=== PATIENT | male | born 1955 | race Caucasian/White ===

== ENCOUNTER 2019-05-09 14:50 | Emergency (ER) | payer MEDICAID ==
[~2019-05-09] VITALS: Ht 180.3 cm; Wt 109.3 kg
[2019-05-09 14:55] VITALS: BP 141/78
--- NOTE | 2019-05-09 15:01 | NUR ---
64/M BIB SELF C/O SORE THROAT, COUGH, CONGESTION SINCE YESTERDAY.PATIENT STATES PAIN OF 5/10 AT THIS TIME. PATIENT POSITIONED FOR COMFORT; HOB ELEVATED; BEDRAILS UP X1; BED DOWN. ER MD MADE AWARE OF PT STATUS.
[2019-05-09] MEDS: IBUPROFEN 800 MG TAB PO ONE (15:28)
--- NOTE | 2019-05-09 16:07 | NUR ---
Patient discharged with v/s stable. Written and verbal after care instructions given and explained. Patient alert, oriented and verbalized understanding of instructions. Ambulatory with steady gait. All questions addressed prior to discharge. ID band removed. Patient advised to follow up with PMD. Rx of MOTRIN 800 MG, PROMETHAZINE 6.25/15 MG/ML given. Patient educated on indication of medication including possible reaction and side effects. Opportunity to ask questions provided and answered.
[2019-05-09 16:08] VITALS: BP 134/97
== END 2019-05-09 16:07 | disposition home or self-care (01) ==
LOC: MED 14:50
DX: J06.9 Acute upper respiratory infection, unspecified (principal)
CPT/HCPCS: 99283

== ENCOUNTER 2019-05-23 14:30 | Emergency (ER) | payer MEDICAID ==
[~2019-05-23] VITALS: Ht 182.9 cm; Wt 108.4 kg
[2019-05-23 14:42] VITALS: BP 146/95
--- NOTE | 2019-05-23 15:05 | NUR ---
64 YO M C/O COUGH AND RUNNY NOSE X 2 WEEKS. PT CAME TO ER 2 WEEKS AGO AND WAS PRESCRIBED WITH UNRECALLED COUGH SYRUP AND IBUPROFEN, WHICH PROVIDED MINIMAL RELIEF. SYMPTOMS PERSISTED, HENCE THIS CONSULT. DENIES FEVER, N/V/D. IN ER, VSS. WITH EXPIRATORY WHEEZING HEARD ON RIGHT UPPER LUNG FIELD . POSITIONED COMFORTABLY IN BED, SIDE RAILS UP. ERMD MADE AWARE. DENIES PMH NO MEDS NKA
[2019-05-23] MEDS: DEXAMETHASONE 10 MG/ML VIAL IM ONE (15:46)
[2019-05-23 15:48] VITALS: BP 146/95
--- NOTE | 2019-05-23 15:52 | NUR ---
Patient discharged with v/s stable. Written and verbal after care instructions given and explained. Patient alert, oriented and verbalized understanding of instructions. Ambulatory with steady gait. All questions addressed prior to discharge. ID band removed. Patient advised to follow up with PMD. Rx of PROMETHAZINE, PREDNISONE, ALBUTEROL, LORATADINE given. Patient educated on indication of medication including possible reaction and side effects. Opportunity to ask questions provided and answered.
== END 2019-05-23 15:52 | disposition home or self-care (01) ==
LOC: MED 14:30
DX: J20.9 Acute bronchitis, unspecified (principal); J30.9 Allergic rhinitis, unspecified
CPT/HCPCS: 71045; 96372; 99283; J1100

== ENCOUNTER 2019-12-05 16:48 | Emergency (ER) | payer MEDICAID ==
[~2019-12-05] VITALS: Ht 180.3 cm; Wt 104.3 kg
[2019-12-05 16:53] VITALS: BP 114/78
--- NOTE | 2019-12-05 16:56 | NUR ---
AMB TO [facility]
[2019-12-05] MEDS ORDERED: KETOROLAC 30 MG/ML VIAL IM ONE (17:10)
--- NOTE | 2019-12-05 17:13 | NUR ---
APPLIED KNEE BRACE TO RIGHT KNEE WITHOUT ANY ISSUES
[2019-12-05 17:34] VITALS: BP 114/78
== END 2019-12-05 17:34 | disposition home or self-care (01) ==
LOC: MED 16:48
DX: G89.29 Other chronic pain (principal); M25.561 Pain in right knee
CPT/HCPCS: 29505; 96372; 99283; J1885

== ENCOUNTER 2019-12-16 19:03 | Emergency (ER) | payer MEDICAID ==
[~2019-12-16] VITALS: Ht 180.3 cm; Wt 106.1 kg
[2019-12-16 19:13] VITALS: BP 143/88
--- NOTE | 2019-12-16 19:17 | NUR ---
PT AMBULATED TO BED 02 WITH STEADY GAIT.
--- NOTE | 2019-12-16 19:26 | NUR ---
64 Y/O MALE PRESENTS TO ER WITH C/O RIGHT EAR INTERMITTENT, PRESSURE, THROBBING PAIN X1 WEEK. 7/10 PAIN. ALSO C/O PAIN WITH SWALLOWING. AND RIGHT KNEE PAIN. PT STATES HE PUT OTC EAR GTTS AND HYDROGEN PEROXIDE IN EAR LAST NIGHT. DENIES TRAUMA/INJURY, DISCHARGE/DRAINAGE, AUDITORY CHANGES, VISION CHANGES, HEADACHES, FEVER, N/V/D, SOB, COUGH. SIDE RAIL X1, BED IN LOW POSITION, WILL CONTINUE TO MONITOR. NKDA DENIES PMH
--- NOTE | 2019-12-16 19:34 | NUR ---
PT WAS GIVEN KAYLA WRAPS. PT STATED THAT HE WOULD DO IT HIM SELF AT HOME DIDNT WANT TO KAYLA WRAP HIS KNEE HERE.
[2019-12-16] MEDS ORDERED: KETOROLAC 60 MG/2 ML VIAL IM ONE (19:35)
[2019-12-16 19:50] VITALS: BP 143/88
--- NOTE | 2019-12-16 19:50 | NUR ---
Patient discharged with v/s stable. Written and verbal after care instructions given and explained. Patient alert, oriented and verbalized understanding of instructions. Ambulatory with steady gait. All questions addressed prior to discharge. ID band removed. Patient advised to follow up with PMD. Rx of AUGMENTIN, NORCO given. Patient educated on indication of medication including possible reaction and side effects. Opportunity to ask questions provided and answered.
== END 2019-12-16 19:50 | disposition home or self-care (01) ==
LOC: MED 19:03
DX: M25.561 Pain in right knee (principal); H92.01 Otalgia, right ear
CPT/HCPCS: 96372; 99283; J1885

== ENCOUNTER 2020-02-14 13:54 | Emergency (ER) | payer MEDICAID ==
[~2020-02-14] VITALS: Ht 182.9 cm; Wt 104.3 kg
[2020-02-14 14:06] VITALS: BP 123/70
--- NOTE | 2020-02-14 14:09 | NUR ---
PT INSTRUCTED TO WAIT IN LOBBY
--- NOTE | 2020-02-14 14:30 | NUR ---
PATIENT PRESENTS TO ED WITH BILAT SHOULDER PAIN X3 DAYS AND BACK PAIN. DENIES ANY RECENT INJURY, NO DEFORMITIES NOTED AT THIS TIME . PT STATES HES BEEN WORKING ALOT, AND [employer] FOR WORK . DENIES N/V/D; SKIN IS PINK/WARM/DRY; AAOX4 WITH EVEN AND STEADY GAIT; LUNGS CLEAR BL; HR EVEN AND REGULAR; PT DENIES ANY FEVER, CP, SOB, OR COUGH AT THIS TIME; PATIENT STATES PAIN OF 10/10 AT THIS TIME; VSS; PATIENT POSITIONED FOR COMFORT; HOB ELEVATED; BEDRAILS UP X2; BED DOWN. ER MD MADE AWARE OF PT STATUS.
[2020-02-14] MEDS ORDERED: KETOROLAC 30 MG/ML VIAL IM ONE (15:25)
[2020-02-14 16:05] VITALS: BP 123/70
--- NOTE | 2020-02-14 16:06 | NUR ---
Patient discharged with v/s stable. Written and verbal after care instructions given and explained. Patient alert, oriented and verbalized understanding of instructions. Ambulatory with steady gait. All questions addressed prior to discharge. ID band removed. Patient advised to follow up with PMD. Rx of IBUPROFEN, FLEXIRIL given. Patient educated on indication of medication including possible reaction and side effects. Opportunity to ask questions provided and answered.
== END 2020-02-14 16:06 | disposition home or self-care (01) ==
LOC: MED 13:54
DX: S29.012A Strain of muscle and tendon of back wall of thorax, initial encounter (principal); X58.XXXA Exposure to other specified factors, initial encounter; Y93.89 Activity, other specified; Y92.89 Other specified places as the place of occurrence of the external cause; Y99.8 Other external cause status
CPT/HCPCS: 96372; 99283; J1885

== ENCOUNTER 2020-02-25 15:08 | Emergency (ER) | payer MEDICAID ==
[~2020-02-25] VITALS: Ht 182.9 cm; Wt 105.2 kg
[2020-02-25 15:19] VITALS: BP 134/82
--- NOTE | 2020-02-25 15:30 | NUR ---
PT PRESENTS TO THE ER FOR MEDICAL CLEARANCE PAPERWORK SHOWS THAT HE CAN GO BACK WORK FROM [employer]CLE [employer]AIN WHICH WAS DX IN OUR ER ON 02/14/2020. PT STATES THE PAIN HAS BEEN IMPROVED. PMH: DENIES
[2020-02-25 15:44] VITALS: BP 134/82
--- NOTE | 2020-02-25 15:45 | NUR ---
Patient discharged with v/s stable. Written and verbal after care instructions given and explained. Patient verbalized understanding. Ambulatory with steady gait. All questions addressed prior to discharge. Advised to follow up with PMD.
== END 2020-02-25 15:40 | disposition home or self-care (01) ==
LOC: MED 15:08
DX: S39.012A Strain of muscle, fascia and tendon of lower back, initial encounter (principal); X58.XXXA Exposure to other specified factors, initial encounter; Y93.89 Activity, other specified; Y92.89 Other specified places as the place of occurrence of the external cause; Y99.8 Other external cause status
CPT/HCPCS: 99281

== ENCOUNTER 2020-07-16 16:55 | Emergency (ER) | payer MEDICAID, OTHER ==
[~2020-07-16] VITALS: Ht 182.9 cm; Wt 105.2 kg
[2020-07-16 17:12] VITALS: BP 127/60
--- NOTE | 2020-07-16 18:25 | NUR ---
PT WHEELED TO XR VIA WHEELCHAIR.
--- NOTE | 2020-07-16 18:54 | NUR ---
Patient to bed 11. RN evaluating the patient at bedside.
--- NOTE | 2020-07-16 18:54 | NUR ---
PT AMBULATED TO BED 12, STEADY GAIT.
--- NOTE | 2020-07-16 18:54 | NUR ---
PATIENT AMBULATED TO BED 12
[2020-07-16] MEDS ORDERED: METH-1681 PO (18:55)
[2020-07-16] MEDS ORDERED: IBUP-2213 PO (18:55)
--- NOTE | 2020-07-16 18:56 | NUR ---
65 Y/ M PRESENTS TO ED FOR LOW LEFT BACK PAIN X 2 WEEK, AFTER FORK LIFT INJURY, INJURED BACK ON POLE. PT REPORTS 10/10 CONTSTANT SHARP PAIN, RADIATES DOWN TO L LEG C NUMBNESS AND TINGLING. PT ALSO REPORTS URINARY FREQUENCY X3 MONTHS, DENIES BURNING PMH- DENIES NKDA- RX-DENIES
[2020-07-16 19:03] VITALS: BP 127/60
--- NOTE | 2020-07-16 19:04 | NUR ---
Patient discharged with v/s stable. Written and verbal after care instructions given and explained. Patient alert, oriented and verbalized understanding of instructions. Ambulatory with steady gait. All questions addressed prior to discharge. ID band removed. Patient advised to follow up with PMD. Rx of robaxin 500mg bid PO, and ibuprofen 600mg q8h prn pain given. Patient educated on indication of medication including possible reaction and side effects. Opportunity to ask questions provided and answered.
== END 2020-07-16 19:04 | disposition home or self-care (01) ==
LOC: MED 16:55
DX: M54.5 Low back pain (principal); R20.0 Anesthesia of skin; R20.2 Paresthesia of skin
CPT/HCPCS: 72100; 81002; 99283

== ENCOUNTER 2020-09-13 11:56 | Emergency (ER) | payer MEDICAID, OTHER ==
[~2020-09-13] VITALS: Ht 180.3 cm; Wt 105.2 kg
[~2020-09-13 11:56] MED LIST: IBUP-2213 PO; METH-1681 PO
[2020-09-13 12:02] VITALS: BP 119/74
[2020-09-13] MEDS ORDERED: ACET-8386 PO (13:42)
[2020-09-13] MEDS ORDERED: IBUP-2213 PO (13:42)
[2020-09-13 13:53] VITALS: BP 119/74
== END 2020-09-13 13:54 | disposition home or self-care (01) ==
LOC: MED 11:56
DX: M25.571 Pain in right ankle and joints of right foot (principal); R60.0 Localized edema
CPT/HCPCS: 73610; 99283

== ENCOUNTER 2021-01-06 10:41 | Emergency (ER) | payer MEDICAID ==
[~2021-01-06] VITALS: Ht 182.9 cm; Wt 105.2 kg
[~2021-01-06 10:41] MED LIST changes: +ACET-8386 PO
[2021-01-06 10:54] VITALS: BP 146/94
--- NOTE | 2021-01-06 11:05 | NUR ---
65 YO MALE BIBS WITH C/O 10/10 HEAD, R SHOULDER, LOWER BACK PAIN X 2 DAYS. S/P FALL DOWN STAIRS. SKIN INTACT, NO ABRASIONS/BRUISING. ROM AND SENSATION INTACT. PATIENT TOOK TRAMADOL AND HYDROCODONE "A FEW DAYS AGO" WHICH PROVIDED RELIEF. A&OX4, AMBULATORY, VSS. DENIES LOC. PMH: DENIES NKDA
--- NOTE | 2021-01-06 11:41 | NUR ---
MD MARIE AT BEDSIDE EVALUATING PATIENT.
--- NOTE | 2021-01-06 11:52 | NUR ---
PATIENT TAKEN TO XRAY VIA W/C.
[2021-01-06] MEDS ORDERED: IBUP-2213 PO (12:24)
== END 2021-01-06 12:27 | disposition home or self-care (01) ==
LOC: MED 10:41
DX: S43.401A Unspecified sprain of right shoulder joint, initial encounter (principal); S33.5XXA Sprain of ligaments of lumbar spine, initial encounter; W19.XXXA Unspecified fall, initial encounter; Y93.89 Activity, other specified; Y92.89 Other specified places as the place of occurrence of the external cause; Y99.8 Other external cause status
CPT/HCPCS: 72100; 73030; 99284

== ENCOUNTER 2021-06-29 10:57 | Emergency (ER) | payer MEDICAID ==
[~2021-06-29] VITALS: Ht 180.3 cm; Wt 104.3 kg
--- NOTE | 2021-06-29 11:00 | NUR ---
called name in lobby, no answer
[2021-06-29 11:10] VITALS: BP 138/80
--- NOTE | 2021-06-29 11:15 | NUR ---
Patient ambulated to bed 6 with steady gait
--- NOTE | 2021-06-29 11:34 | NUR ---
DR PANDYA AT BEDSIDE EVALUATING PT
[2021-06-29] MEDS ORDERED: BENZ1LOZ98 PO (11:37)
--- NOTE | 2021-06-29 11:45 | NUR ---
66/M PRESENTS TO ED WITH C/O SORE THROAT X3 WEEKS RADIATING TO RIGHT EAR. PATIENT STATES THROAT FEELS "DRY" STATING THE SENSATION HAS BROUGHT ON NAUSEA AND VOMITING. DENIES FEVER, CHILLS, COUGH.
--- NOTE | 2021-06-29 12:00 | NUR ---
Obtained specimen and walked to lab.
--- NOTE | 2021-06-29 12:10 | NUR ---
Patient discharged with v/s stable. Written and verbal after care instructions given. Patient alert, oriented and verbalized understanding of instructions. Ambulatory with steady gait. All questions addressed prior to discharge. ID band removed. Patient advised to follow up with PMD. Rx of Cepacol Sore Throat Lozenges given. Opportunity to ask questions provided and answered.
[2021-06-29 12:11] VITALS: BP 138/80
--- NOTE | 2021-06-29 12:16 | NUR ---
The patient's care was reviewed and supervised by Bria Cesar RN.
== END 2021-06-29 12:10 | disposition home or self-care (01) ==
LOC: MED 10:57
DX: J02.8 Acute pharyngitis due to other specified organisms (principal); B97.89 Other viral agents as the cause of diseases classified elsewhere; Z20.822 Contact with and (suspected) exposure to COVID-19; Z79.899 Other long term (current) drug therapy; Z79.1 Long term (current) use of non-steroidal anti-inflammatories (NSAID); Z79.891 Long term (current) use of opiate analgesic
CPT/HCPCS: 99283; U0003; 36415

== ENCOUNTER 2021-07-22 19:27 | Emergency (ER) | payer MEDICAID ==
[~2021-07-22] VITALS: Ht 180.3 cm; Wt 105.7 kg
[~2021-07-22 19:27] MED LIST changes: +BENZ-300 PO
--- NOTE | 2021-07-22 20:04 | NUR ---
called to triage from lobby and outside, no answer.
[2021-07-22 20:15] VITALS: BP 114/78
--- NOTE | 2021-07-22 20:20 | NUR ---
pt sent back to lobby.
--- NOTE | 2021-07-22 22:27 | NUR ---
CALLED BACK TO BED NO ANSWER.
--- NOTE | 2021-07-22 22:49 | NUR ---
PT IN BED #4
== END 2021-07-22 23:19 | disposition left against medical advice (07) ==
LOC: MED 19:27
DX: M54.50 Low back pain, unspecified (principal); Z53.21 Procedure and treatment not carried out due to patient leaving prior to being seen by health care provider

== ENCOUNTER 2022-01-30 11:32 | Inpatient (IN) | payer OTHER, MEDICAID ==
[~2022-01-30] VITALS: Ht 180.3 cm; Wt 102.1 kg
[2022-01-30 11:40] VITALS: BP 166/94
[2022-01-30] MEDS ORDERED: ONDANSETRON 4 MG/2 ML VIAL IVP ONE (12:00)
[2022-01-30] MEDS ORDERED: MORPHINE SULFATE 4 MG/ML SYR IVP ONE (12:00)
[2022-01-30] MEDS ORDERED: NACL 0.9% 1,000 ML IV ONE (12:00)
--- NOTE | 2022-01-30 12:20 | NUR ---
pt medicated for abd pain, already medicated per md order, o2 sat 99% ra, sr up times 2, sr on cm. has diffuse abd tenderness, has bandages at abd area
[2022-01-30 12:56] LABS: HEMATOCRIT 44.7 % (36-52); HEMOGLOBIN 14.8 g/dL (12.0-18.0); MEAN CORPUSCULAR HEMOGLOBIN 28 pg (27-31); MEAN CORPUSCULAR HGB CONC 33 g/dL (33-37); MEAN CORPUSCULAR VOLUME 85.5 fL (80-94); PLATELET COUNT (AUTO) 204 K/uL (140-450); RED BLOOD CELL COUNT(AUTO) 5.22 MIL/uL (4.20-6.10); RED CELL DISTRIBUTION WIDTH 14.1 % (11.6-13.7); WHITE BLOOD COUNT (AUTO) 12.2 K/uL (4.8-10.8)
[2022-01-30 13:16] LABS: LYMPHOCYTES % (MANUAL) 8 % (20-46); MONOCYTES % (MANUAL) 6 % (5-12)
[2022-01-30 13:20] LABS: ALBUMIN 2.8 g/dL (3.4-5.0); CARBON DIOXIDE 23.6 mmol/L (21-32); CREATININE 2.3 mg/dL (0.6-1.3)
[2022-01-30 13:46] LABS: ANION GAP 21.8 (8-16); POTASSIUM 4.4 mmol/L (3.5-5.1)
--- NOTE | 2022-01-30 13:47 | NUR ---
sleeping, no ac distress, abd pain 04/06, o2 sat 99% ra, sr on cm, sr up times 2
[2022-01-30 16:09] LABS: APPEARANCE,URINE CLEAR (CLEAR); BILIRUBIN,URINE 1+ (NEGATIVE); BLOOD, URINE 3+ (NEGATIVE); LEUKOCYTE ESTERASE ,URINE NEGATIVE (NEGATIVE); NITRITE, URINE NEGATIVE (NEGATIVE); UGLUCOSE NEGATIVE (NEGATIVE)
[2022-01-30 16:11] LABS: COLOR,URINE AMBER (YELLOW)
[2022-01-30 16:55] LABS: RBC,URINE TOO NUMEROUS TO COUN /HPF (0-5); WBC,URINE NONE SEEN /HPF (0-5)
[2022-01-30] MEDS ORDERED: metroNIDAZOLE 500 MG/NS PREMIX 100 ML IV ONE (17:20)
[2022-01-30] MEDS ORDERED: cefTRIAXone 1,000 MG in DEXT 5% MINI-BAG PLUS 50 ML IV ONE (17:20)
[2022-01-30] MEDS ORDERED: NACL 0.9% 1,000 ML IV SCH (17:20)
[2022-01-30] MEDS ORDERED: cefTRIAXone 1,000 MG VIAL ONE (17:54)
[2022-01-30] MEDS ORDERED: TAMS0.4C96 PO (18:51)
[2022-01-30] MEDS ORDERED: ACET-8386 PO (18:51)
[2022-01-30] MEDS ORDERED: PANT40EC PO (18:51)
[2022-01-30] MEDS: ONDANSETRON 4 MG/2 ML VIAL IVP PRN (19:13)
--- NOTE | 2022-01-30 19:21 | NUR ---
floyd cath changed per dr order, 16F, reddish and dark yellow urine, small amount
[2022-01-30] MEDS: NACL 0.9% 1,000 ML IV SCH (19:24)
[2022-01-30] MEDS ORDERED: MORPHINE SULFATE 2 MG/ML SYR IVP PRN (19:40)
--- NOTE | 2022-01-30 20:19 | NUR ---
Patient ate 25% of meal.
--- NOTE | 2022-01-30 20:40 | NUR ---
Patient lying in bed, A/Ox4, chest rise and fall symmetrical, no c/o pain or s/s of discomfort.
--- NOTE | 2022-01-30 21:30 | NUR ---
Patient lying in bed, A/Ox4, chest rise and fall symmetrical, no c/o pain or s/s of discomfort.
--- NOTE | 2022-01-30 22:43 | NUR ---
Patient lying in bed, A/Ox4, chest rise and fall symmetrical, no c/o pain or s/s of discomfort.
--- NOTE | 2022-01-30 23:15 | NUR ---
Patient lying in bed, A/Ox4, chest rise and fall symmetrical, no c/o pain or s/s of discomfort.
--- NOTE | 2022-01-31 00:30 | NUR ---
Patient lying in bed, A/Ox4, chest rise and fall symmetrical, no c/o pain or s/s of discomfort.
--- NOTE | 2022-01-31 02:22 | NUR ---
Patient lying in bed, A/Ox4, chest rise and fall symmetrical, no c/o pain or s/s of discomfort.
--- NOTE | 2022-01-31 04:20 | NUR ---
Patient lying in bed, A/Ox4, chest rise and fall symmetrical, no c/o pain or s/s of discomfort.
[2022-01-31] MEDS: NACL 0.9% 1,000 ML IV SCH ×3 (04:59→20:20)
--- NOTE | 2022-01-31 06:00 | NUR ---
Patient lying in bed, A/Ox4, chest rise and fall symmetrical, no c/o pain or s/s of discomfort.
--- NOTE | 2022-01-31 07:15 | NUR ---
Change of shift report given to Sourav KLEIN. Sourav KLEIN verbalized understanding of report, no further questions.
--- NOTE | 2022-01-31 07:47 | NUR ---
pt sleeping, no ac distress, o2 sat 99% ra, sr up times 2, cath in place. will be admitted
[2022-01-31] MEDS: ENOXAPARIN 40 MG/0.4 ML SYR SUBQ SCH (09:09)
--- NOTE | 2022-01-31 09:13 | NUR ---
PATIENT HAS BEEN SCREENED AND CATEGORIZED MODERATE NUTRITION RISK. PATIENT WILL BE SEEN WITHIN 3-5 DAYS OF ADMISSION. 01/30/22-02/04/[address]
[2022-01-31 09:27] LABS: BASOPHILS % (AUTO) 0.3 % (0.0-2.0); EOSINOPHILS # (AUTO) 0.1 K/uL (0-0.4); EOSINOPHILS % (AUTO) 0.5 % (0.0-4.0); HEMATOCRIT 41.7 % (36-52); HEMOGLOBIN 13.9 g/dL (12.0-18.0); LYMPHOCYTES # (AUTO) 1.3 K/uL (2.0-11.5); LYMPHOCYTES % (AUTO) 12.1 % (20.5-51.1); MEAN CORPUSCULAR HEMOGLOBIN 29 pg (27-31); MEAN CORPUSCULAR HGB CONC 33 g/dL (33-37); MONOCYTES # (AUTO) 1.3 K/uL (0.8-1.0); MONOCYTES % (AUTO) 12.2 % (1.7-9.3); NEUTROPHILS % (AUTO) 74.9 % (42.2-75.2); PLATELET COUNT (AUTO) 241 K/uL (140-450); RED BLOOD CELL COUNT(AUTO) 4.86 MIL/uL (4.20-6.10); RED CELL DISTRIBUTION WIDTH 14.3 % (11.6-13.7); WHITE BLOOD COUNT (AUTO) 10.7 K/uL (4.8-10.8)
--- NOTE | 2022-01-31 10:20 | NUR ---
pt sleeping, no ac distress, floyd cath in place, sr on cm, o2 sat 99% ra, sr up times 2, tolerated breakfast well, no n/v
--- NOTE | 2022-01-31 17:16 | NUR ---
PT MOVED TO ER BED 6
[2022-01-31] MEDS ORDERED: cefTRIAXone 1,000 MG VIAL ONE (18:04)
[2022-01-31] MEDS: ONDANSETRON 4 MG/2 ML VIAL IVP PRN (18:15)
--- NOTE | 2022-01-31 19:24 | NUR ---
report to Joslyn KLEIN, night shift supervisor
--- NOTE | 2022-01-31 19:39 | NUR ---
Patient will be admitted to care of . Admited to [facility]. Will go to [id number]. Belongings list completed. Report to LATOYA ANDERSON.
[2022-01-31 19:45] VITALS: BP 136/76
--- NOTE | 2022-01-31 19:45 | NUR ---
RECEIVED REPORT FROM ER NURSE JOCELYNE FOR CONTINUITY OF CARE. PATIENT IS A&O X4. PATIENT IS ON ROOM AIR, BREATHING IS NORMAL WITH SYMMETRICAL RISE AND FALL OF CHEST. IV IS A 20G LAC, RUNNING NS AT 100. PATIENT HAS WAY CATHETER IN PLACE. PATIENT IS COOPERATIVE AND HIS MOOD SEEMS POSITIVE, BUT PATIENT APPEARS TO BE TIRED. PATIENT IS LYING IN BED IN SEMI-FOWLERS POSITION. WILL CONTINUE TO OBSERVE PATIENT.
--- NOTE | 2022-01-31 19:45 | NUR ---
PATIENT'S ADMISSION VITALS WERE: BP 136/76, HR 85, O2 97%, RR 18, TEMP 99.3. WILL CONTINUE TO OBSERVE PATIENT.
--- NOTE | 2022-01-31 20:30 | NUR ---
PATIENT COMPLAINED OF CATHETER LEAKING. CHECKED CATHETER, CATHETER WAS LEAKING FROM INSERTION SITE. EMPTIED 800 ML FROM CATHETER BAG. LATOYA GRANADOS WAS ABLE TO WITHDRAW 10 ML FROM CATHETER AND ADVANCE CATHETER A LITTLE BIT INTO INSERTION SITE, THEN PUSHED THE 10 ML BACK IN. PATIENT TOLERATED WELL. LEAKING APPEARS TO HAVE STOPPED, WILL CONTINUE TO OBSERVE PATIENT.
--- NOTE | 2022-01-31 23:00 | NUR ---
LOOKED IN ON PATIENT. PATIENT WAS SLEEPING, LYING IN SEMI-FOWLERS POSITION. BREATHING WAS NORMAL WITH SYMMETRICAL RISE AND FALL OF CHEST. WILL CONTINUE TO OBSERVE PATIENT.
--- NOTE | 2022-02-01 01:30 | NUR ---
LOOKED IN ON PATIENT. PATIENT WAS SLEEPING, LYING IN SEMI-FOWLERS POSITION. BREATHING WAS NORMAL WITH SYMMETRICAL RISE AND FALL OF CHEST. BED WAS IN LOWEST POSITION, WHEELS LOCKED, CALL LIGHT IN PLACE. WILL CONTINUE TO OBSERVE PATIENT.
--- NOTE | 2022-02-01 03:20 | NUR ---
LOOKED IN ON PATIENT. PATIENT WAS SLEEPING, LYING IN SEMI-FOWLERS POSITION. IV WAS RUNNING NS AT 100 ML. BREATHING WAS NORMAL WITH SYMMETRICAL RISE AND FALL OF CHEST. WILL CONTINUE TO OBSERVE PATIENT.
[2022-02-01 04:00] VITALS: BP 131/81
--- NOTE | 2022-02-01 04:45 | NUR ---
OBTAINED VITALS. VITALS WERE: TEMP 97.0, BP 131/81, HR 70, O2 96, RR 18. PATIENT WAS SLEEPING WHEN I ENTERED THE ROOM, AND IMMEDIATELY FELL BACK TO SLEEP AFTER VITALS WERE DONE. EMPTIED 750 ML FROM URINAL. BREATHING WAS NORMAL WITH SYMMETRICAL RISE AND FALL OF CHEST. WILL CONTINUE TO OBSERVE PATIENT.
--- NOTE | 2022-02-01 07:30 | NUR ---
ENDORSED TO DAY SHIFT NURSE CHI FOR CONTINUITY OF CARE. PATIENT IS STABLE.
--- NOTE | 2022-02-01 08:00 | NUR ---
PATIENT RESTING IN BED COMFORTABLY. PATIENT DENIES PAIN, SOB, OR DISCOMFORT AT THIS TIME. BED LOCKED AT LOWEST POSITION, SIDE RAILS UP, CALL LIGHT WITHIN REACH. WILL CONTINUE TO MONITOR.
[2022-02-01] MEDS: ENOXAPARIN 40 MG/0.4 ML SYR SUBQ SCH (09:23)
[2022-02-01] MEDS: NACL 0.9% 1,000 ML IV SCH ×2 (09:25→12:33)
--- NOTE | 2022-02-01 10:00 | NUR ---
PATIENTS BED CHANGE AND PATIENTS WAY INSPECTED FOR LEAKING. PATIENT REPOSITIONED AND MADE COMFORTABLE.
[2022-02-01 10:55] VITALS: BP 140/83
[2022-02-01 11:50] LABS: BASOPHILS % (AUTO) 0.4 % (0.0-2.0); EOSINOPHILS # (AUTO) 0.1 K/uL (0-0.4); EOSINOPHILS % (AUTO) 1.7 % (0.0-4.0); HEMATOCRIT 38.9 % (36-52); LYMPHOCYTES % (AUTO) 12.3 % (20.5-51.1); MEAN CORPUSCULAR HEMOGLOBIN 29 pg (27-31); MEAN CORPUSCULAR HGB CONC 33 g/dL (33-37); MEAN CORPUSCULAR VOLUME 85.8 fL (80-94); MONOCYTES # (AUTO) 0.9 K/uL (0.8-1.0); MONOCYTES % (AUTO) 11.2 % (1.7-9.3); NEUTROPHILS # (AUTO) 6.1 K/uL (1.8-7.7); NEUTROPHILS % (AUTO) 74.4 % (42.2-75.2); PLATELET COUNT (AUTO) 266 K/uL (140-450); RED BLOOD CELL COUNT(AUTO) 4.54 MIL/uL (4.20-6.10); RED CELL DISTRIBUTION WIDTH 14.2 % (11.6-13.7); WHITE BLOOD COUNT (AUTO) 8.2 K/uL (4.8-10.8)
[2022-02-01] MEDS ORDERED: CEPH-588 PO (12:27)
[2022-02-01 16:00] VITALS: BP 128/53
--- NOTE | 2022-02-01 18:10 | NUR ---
PATIENT RESTING IN BED COMFORTABLY. PATIENT DENIES PAIN, SOB, OR DISCOMFORT AT THIS TIME. BED LOCKED AT LOWEST POSITION, SIDE RAILS UP, CALL LIGHT WITHIN REACH. ALL NEEDS MET AT THIS TIME.
[2022-02-01 18:43] VITALS: BP 128/53
== END 2022-02-01 19:45 | disposition home or self-care (01) | DRG 871 ==
LOC: MED 11:32 → MMU 18:23 → MTU 01-31 06:22
PROVIDERS: ADMIT Family Medicine; ATTEND Family Medicine
DX: A41.9 Sepsis, unspecified organism (principal); E43 Unspecified severe protein-calorie malnutrition; N17.0 Acute kidney failure with tubular necrosis; E87.1 Hypo-osmolality and hyponatremia; N13.6 Pyonephrosis; Z20.822 Contact with and (suspected) exposure to COVID-19; Z85.46 Personal history of malignant neoplasm of prostate
CPT/HCPCS: 36415; 80053; 81001; 83605; 83690; 84484; 85025; 87040; 87081; 87086; 93005; 96361; 96374; 96375; 99291; J0696; J1650; J2270; J2405; J3490; J7060